=== PATIENT | male | born 1990 | race Caucasian/White ===

== ENCOUNTER → 2016-10-21 | Outpatient (REF) | payer BC | LOC: M WUC 08:54 | PROVIDERS: ATTEND Physician Assistant | DX: J03.90 Acute tonsillitis, unspecified (principal) ==

== ENCOUNTER → 2016-12-21 | Outpatient (REF) | payer BC | LOC: M LAB REF 16:30 | PROVIDERS: ATTEND Physician Assistant | DX: J02.9 Acute pharyngitis, unspecified (principal) ==

== ENCOUNTER → 2017-02-28 | Outpatient (REF) | payer BC | LOC: M LAB REF 19:06 | PROVIDERS: ATTEND Physician Assistant | DX: J02.9 Acute pharyngitis, unspecified (principal) ==

== ENCOUNTER → 2017-08-20 | Outpatient (REF) | payer BC ==
[2017-08-20 15:36] LABS: AMORPHOUS SEDIMENT SMALL (NEGATIVE); APPEARANCE, URINE CLOUDY (CLEAR); BACTERIA, URINE AUTO NEGATIVE (NEGATIVE); BILIRUBIN, URINE AUTO NEGATIVE (NEGATIVE); BLOOD, URINE BLOOD NEGATIVE (NEGATIVE); COLOR, URINE YELLOW (YELLOW); GLUCOSE, URINE (UA) AUTO NEGATIVE (NEGATIVE); KETONE, URINE AUTO NEGATIVE (NEGATIVE); LEUKOCYTE ESTERASE, URINE AUTO NEGATIVE (NEGATIVE); MUCUS, URINE SMALL (NEGATIVE); NITRITE, URINE AUTO NEGATIVE (NEGATIVE); PROTEIN, URINE AUTO 1+ mg/dL (NEGATIVE); RBC, URINE AUTO 3 /HPF (0-3); SPECIFIC GRAVITY URINE AUTO 1.017 (1.002-1.035); SQUAMOUS EPITHELIAL CELL UR AU 1 /HPF (0-6); UROBILINOGEN, URINE AUTO 0.2 mg/dL (0.0-2.0); WBC, URINE AUTO 1 /HPF (0-3)
== END ==
LOC: M LAB REF 15:18
DX: N39.0 Urinary tract infection, site not specified (principal)
CPT/HCPCS: 81001

== ENCOUNTER → 2018-05-23 | Outpatient (REF) | payer BC ==
[2018-05-23 13:02] LABS: INFLUENZA A AMPLIFICATION POSITIVE (NEGATIVE); INFLUENZA B AMPLIFICATION NEGATIVE (NEGATIVE)
== END ==
LOC: M LAB REF 11:52
PROVIDERS: ATTEND Physician Assistant
DX: J11.1 Influenza due to unidentified influenza virus with other respiratory manifestations (principal)

== ENCOUNTER 2020-06-19 23:14 | Emergency (ER) | payer BC, MEDICAID, SELFPAY ==
[~2020-06-19] VITALS: Ht 180.3 cm; Wt 75.8 kg
--- NOTE | 2020-06-20 00:15 | REPVR ---
PROCEDURE INFORMATION: Exam: US Scrotum Exam date and time: 06/19/2020 12:06 AM Age: 29 years old Clinical indication: Scrotum pain; Patient HX: Lt lateral palp lump x 1 weeks with increasing pain TECHNIQUE: Imaging protocol: Real-time ultrasound of the scrotum and contents with color Doppler and image documentation. COMPARISON: No relevant prior studies available. FINDINGS: Right testicle: The right testis demonstrates homogeneous parenchyma and measures 3.5 x 4.6 x 2.6 cm. There is normal right testicular arterial and venous blood flow and color flow. Left testicle: The left testis demonstrates homogeneous parenchyma and measures 3.1 x 2.4 x 4.9 cm. There is normal arterial and venous blood flow. Epididymides: The right epididymal head measures 7 mm with a small cyst measuring 2 x 3 x 3 mm. The left epididymal head measures 10 mm with a small cyst measuring 2 x 3 x 3 mm. Scrotum: A left varicocele is noted. Enlarged vascular structures correlate to an area of palpable abnormality. IMPRESSION: 1. Left varicocele. A left palpable area correlates to vascularity in the lateral left aspect of the scrotum. 2. Minimal bilateral epididymal cysts measuring 2 x 3 x 3 mm bilaterally. 3. Otherwise negative testicular sonogram with normal bilateral blood flow. No torsion. Electronically signed by: Kwesi Valdivia On 06/20/2020 00:15:05 AM
[2020-06-20 00:58] VITALS: BP 120/68
--- NOTE | 2020-06-21 13:21 | ED PDOC ---
Post-Departure Follow-Up ceretiifed letter sent to pt re formal reading of scrotal us - pt need urology r eferral. please refer to [facility] urology,provide number and then fax report to them Walker Quintanilla MD Jun 21, 2020 13:21
== END 2020-06-20 00:55 | disposition home or self-care (01) ==
LOC: M ED 23:14
DX: I86.1 Scrotal varices (principal); N50.3 Cyst of epididymis